=== PATIENT | male | born 2005 | race Caucasian/White ===

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

== ENCOUNTER 2023-06-05 07:30 | Outpatient (RCR) | payer OTHER, SELFPAY | END 2023-08-22 10:47 | disposition home or self-care (01) | PROVIDERS: PCP Family Medicine; Visit Provider Orthopaedic Surgery Sports Medicine | DX: M77.01 Medial epicondylitis, right elbow (principal); S53.441S Ulnar collateral ligament sprain of right elbow, sequela; M25.521 Pain in right elbow; M25.321 Other instability, right elbow; Z51.89 Encounter for other specified aftercare | CPT/HCPCS: 97035; 97110; 97140; 97165; X5282 ==

== ENCOUNTER 2023-11-13 09:30 | Outpatient (RCR) | payer OTHER, SELFPAY | END 2023-11-13 11:40 | disposition home or self-care (01) | PROVIDERS: PCP Family Medicine; Visit Provider Family Medicine | DX: S53.441S Ulnar collateral ligament sprain of right elbow, sequela (principal); M77.01 Medial epicondylitis, right elbow; M25.521 Pain in right elbow; M25.321 Other instability, right elbow; Z51.89 Encounter for other specified aftercare | CPT/HCPCS: 97035; 97140; 97165 ==